=== PATIENT | male | born 1965 | race Hispanic/Latino ===

== ENCOUNTER 2019-01-04 10:56 | Inpatient (IN) | payer MEDICARE ==
[~2019-01-04] VITALS: Ht 175.3 cm; Wt 83.0 kg
[~2019-01-04 10:56] MED LIST: ALPRAZOLAM2 M1 PO; DIVALPROEX SOD250 M1 PO; IBUPROFEN PO; LISINOPRIL5 MG PO; NEXIUM20 MG PO; PRAVASTATIN SOD20 MG PO; ULTRAM50 MG PO; Z.0.ABILIFY5 MG; Z.0.AMLODIPINE BESY1 PO; Z.0.NEXIUM40 MG; Z.0.PRAVASTATIN SOD2; [UNRECOGNIZED DRUG - OTHER]
--- OUTSIDE RECORDS SUMMARY | 2019-01-04 11:00 | XMS REPORT | Summary of Care ---
Author Author [facility] Address Unknown Phone Unavailable Encounter HQ Encntr_aliwinnie(FIN) [id number] Date(s): 10/30/17 - 11/28/17 [facility] Encounter Diagnosis Low back pain (Final) - 12/04/17 Abnormal posture (Final) - Muscle weakness (generalized) (Final) - Unspecified abnormalities of gait and mobility (Final) - Other specified dorsopathies, lumbar region (Final) - Discharge Disposition: Home or Self Care Attending Physician: Asher Parker MD Vital Signs No data available for this section Problem List No data available for this section Allergies, Adverse Reactions, Alerts No data available for this section Medications No data available for this section Results No data available for this section Immunizations No data available for this section Procedures No data available for this section Social History No data available for this section Assessment and Plan No data available for this section
--- OUTSIDE RECORDS SUMMARY | 2019-01-04 11:00 | XMS REPORT | Continuity of Care Document ---
Author Author [facility] Interface Address Unknown Phone Unavailable Problems Problem Status Onset Date Classification Date Reported Comments Source Low back pain 12/05/2017 03/06/2018 [facility] [place] LOW BACK PAIN Active 10/27/2017 [facility] [place] LUMBAR Active 11/25/2016 [facility] [place] Abnormal posture 03/06/2018 [facility] [place] Muscle weakness 03/06/2018 [facility] [place] Unspecified abnormalities of gait and mobility 03/06/2018 [facility] [place] Other specified dorsopathies, lumbar region 03/06/2018 [facility] [place] Medications Medication Details Route Status Patient Instructions Ordering Provider Order Date Source Allergies, Adverse Reactions, Alerts Substance Category Reaction Severity Reaction type Status Date Reported Comments Source Immunizations Immunization Date Given Site Status Last Updated Comments Source Results Order Name Results Value Reference Range Date Interpretation Comments Source Spine lumbar series DX Spine lumbar series DX EXAM: Spine lumbar series DX HISTORY: - M54.17 Radiculopathy, lumbosacral region COMPARISON: None AP, lateral and oblique views of the lumbar spine. FINDINGS: AP alignment is normal. No pars defect or vertebral body height loss is seen. There is advanced L5-S1 disc space narrowing with mild facet arthropathy. IMPRESSION: Advanced L5-S1 disc space narrowing. 12/04/2018 - - Read by: Kellie Lopez MD Dictated Date/time: 12/04/18 12:32 Electronically Signed by: Kellie Lopez MD 12/04/18 12:33 FINAL REPORT [facility] Chest 2 views DX Chest 2 views DX EXAM: Chest 2 views DX HISTORY: - F17.200 Nicotine dependence, unspecified, uncomplicated; R63.4 Abnormal weight loss COMPARISON: None The heart size is normal. The lungs are clear. There is no pleural effusion or pneumothorax. Mild discogenic degenerative changes are noted. IMPRESSION: No acute abnormality. 12/04/2018 - - Read by: Kellie Lopez MD Dictated Date/time: 12/04/18 13:02 Electronically Signed by: Kellie Lopez MD 12/04/18 13:03 FINAL REPORT [facility] [place] Vital Signs Vital Sign Value Date Comments Source Encounters Location Location Details Encounter Type Encounter Number Reason For Visit Attending Provider ADM Date DC Date Status Source [facility] [place] [facility] Patients [id number] Asher Parker 12/05/2016 01/04/2017 [facility] [place] [facility] [place] [facility] Patients [id number] Asher Parker 10/30/2017 11/29/2017 [facility] [place] [facility] [place] Outpt Diag Services [id number] Justin Saab 12/04/2018 12/05/2018 [facility] [place] Procedures Procedure Code Date Perfomer Comments Source
--- OUTSIDE RECORDS SUMMARY | 2019-01-04 11:00 | XMS REPORT | Summary of Care ---
Author Author [facility] Address Unknown Phone Unavailable Encounter HQ Encntr_alias([facility] [place] [facility]) [id number] Date(s): 12/05/16 - 01/03/17 [facility] Discharge Disposition: Home or Self Care Attending [...]
--- OUTSIDE RECORDS SUMMARY | 2019-01-04 11:00 | XMS REPORT | Summary of Care ---
Author Author [facility] [place] Organization [facility] [place] Address Unknown Phone Unavailable Encounter HQ Encntr_alias(FIN) [id number] Date(s): 12/04/18 - 12/04/18 [facility] [place] [address] [place] [phone] Discharge Disposition: Home or Self Care Attending Physician: Justin Saab DO Referring Physician: Justin Saab DO Vital Signs No data available for this [...]
[2019-01-04 12:02] LABS: BASOPHILS % 0.2 % (0.0-1.0); HEMATOCRIT 49.1 % (38.2-49.6); HEMOGLOBIN 16.8 g/dL (14.0-18.0); LYMPHOCYTES # (AUTO) 0.7 (1.0-3.2); LYMPHOCYTES % 5.3 % (18.0-39.1); MEAN CORPUSCULAR HEMOGLOBIN 32.9 pg (28-32); MEAN CORPUSCULAR HGB CONC 34.2 g/dL (31-35); MEAN CORPUSCULAR VOLUME 96.3 fL (81-99); MONOCYTES # (AUTO) 0.6 (0.2-0.8); MONOCYTES % 4.7 % (4.4-11.3); NEUTROPHILS # (AUTO) 11.4 (2.1-6.9); NEUTROPHILS % 89.3 % (38.7-80.0); PLATELET COUNT 268 x10e3/uL (140-360); RED CELL DISTRIBUTION WIDTH 12.5 % (11.7-14.4)
[2019-01-04] MEDS ORDERED: ONDANSETRON HCL INJ 2MG/ML 2ML 2 MG/ML VIAL IV STA (12:04)
[2019-01-04] MEDS ORDERED: SODIUM CHLORIDE 0.9% 1000ML 1,000 ML IV STA (12:04)
[2019-01-04] MEDS ORDERED: PANTOPRAZOLE 40 MG 10ML VIAL IV STA (12:04)
[2019-01-04] MEDS ORDERED: SODIUM CHLORIDE 0.9% 1000ML 1,000 ML ONE (12:05)
[2019-01-04 12:12] LABS: ALANINE AMINOTRANSFERASE 93 IU/L (0-55); ALBUMIN 3.9 g/dL (3.5-5.0); ALKALINE PHOSPHATASE 108 IU/L (40-150); ANION GAP 15.8 mmol/L (8-16); BLOOD UREA NITROGEN 10 mg/dL (7-26); BUN/CREATININE RATIO 12 (6-25); CALCIUM 10.4 mg/dL (8.4-10.2); CARBON DIOXIDE 26 mmol/L (22-29); CHLORIDE 102 mmol/L (98-107); CREATININE, SERUM 0.84 mg/dL (0.72-1.25); EST GLOMERULAR FILTRATION RATE > 60 ML/MIN (60-); GLUCOSE 156 mg/dL (74-118); POTASSIUM 3.8 mmol/L (3.5-5.1); SODIUM 140 mmol/L (136-145)
[2019-01-04 12:13] LABS: CLARITY,URINE CLEAR (CLEAR); COLOR,URINE YELLOW (YELLOW)
[2019-01-04 12:14] LABS: BILIRUBIN,URINE NEGATIVE (NEGATIVE); KETONES,URINE NEGATIVE (NEGATIVE); LEUKOCYTE ESTERASE ,URINE NEGATIVE (NEGATIVE); NITRITE,URINE NEGATIVE (NEGATIVE); PROTEIN,URINE DIPSTICK 1+ (NEGATIVE); URINE UROBILINOGEN 0.2 mg/dL (0.2 - 1)
[2019-01-04] MEDS ORDERED: MORPHINE SULFATE INJ 4 MG/ML INJ 1ML IV ONE (12:15)
[2019-01-04 12:27] LABS: OCCULT BLOOD STOOL POSITIVE (NEGATIVE)
[2019-01-04 12:27] LABS: BACTERIA,URINE FEW /HPF; EPITHELIAL CELLS,URINE FEW /LPF; RBC,URINE 0-5 /HPF (0-5)
[2019-01-04 12:48] LABS: INR 0.82; PROTHROMBIN TIME 11.8 seconds (11.9-14.5)
[2019-01-04 12:49] LABS: PARTIAL THROMBOPLASTIN TIME 30.9 seconds (23.8-35.5)
[2019-01-04 12:51] LABS: C DIFFICILE TOXIN A&B AMP PROB NEGATIVE (NEGATIVE)
[2019-01-04 12:55] LABS: AMYLASE 49 U/L (25-125); CREATINE KINASE 25 IU/L (30-200); LIPASE 11 U/L (8-78)
--- NOTE | 2019-01-04 13:05 | NUR ---
RECEIVED REPORT FROM REY MURPHY. ASSUMED CARE AT THIS TIME.
--- NOTE | 2019-01-04 13:15 | Diagnostic Imaging Report ---
EXAMINATION: CT of the abdomen and pelvis with contrast. TECHNIQUE: Spiral CT images of the abdomen and pelvis were performed from the lung bases to the lesser trochanters after the intravenous administration of 100 cc Isovue-370. Coronal and sagittal reformatted images were obtained. COMPARISON: None. CLINICAL HISTORY:Right upper quadrant abdominal pain DISCUSSION: ABDOMEN/PELVIS: LOWER THORAX:Unremarkable. HEPATOBILIARY: Hepatic parenchyma is diffusely hypoattenuating, compatible with steatosis. No focal hepatic lesion. No intra-or extrahepatic biliary ductal dilation. The gallbladder is normal. SPLEEN: No splenomegaly. PANCREAS: No focal masses or ductal dilatation. ADRENALS: No adrenal nodules. KIDNEYS/URETERS: Punctate nonobstructing calculi within the interpolar and lower pole regions of the left kidney. Subcentimeter hypoattenuating lesion in the interpolar left kidney is too small to further characterize though may represent a small cyst. No hydronephrosis. No solid renal mass lesion. PELVIC ORGANS/BLADDER: The urinary bladder is incompletely distended but otherwise unremarkable. Coarse prostatic calcifications. PERITONEUM/RETROPERITONEUM: No free air or fluid. LYMPH NODES: No pelvic sidewall, retroperitoneal, or mesenteric lymphadenopathy. VESSELS: Abdominal aorta, major branch vessels, and iliac arterial systems are nonaneurysmal. Atherosclerotic calcification of the abdominal aorta. Single bilateral renal arteries. Portal vein, splenic vein, and central superior mesenteric vein are patent. GI TRACT: The large bowel is notable for multiple sigmoid diverticula with a short segment focus of wall thickening and adjacent inflammatory change seen on series 2 image 66. Normal appendix. No small bowel dilatation to suggest obstruction. Multiple surgical clips along the rectosigmoid junction. BONES AND SOFT TISSUE: No osseous destructive lesions. Degenerative disc changes and facet arthropathy of the lumbar spine. No focal soft tissue abnormalities. Postsurgical changes of the anterior abdominal wall. IMPRESSION: Findings suggest mild short segment sigmoid diverticulitis along the area of previous partial colectomy. No maci perforation or drainable fluid collection. Nonobstructing left renal calculi. Atherosclerotic vascular disease. Signed by: Dr. Pablo Farrell M.D. on 01/04/2019 1:12 PM
--- NOTE | 2019-01-04 13:17 | Diagnostic Imaging Report ---
EXAMINATION: CHEST SINGLE (PORTABLE) INDICATION: Vomiting. Abdominal pain. ^ABD PAIN ^[id number] ^1254 COMPARISON: None FINDINGS: TUBES and LINES: None. LUNGS: Lungs are well inflated. Lungs are clear. There is no evidence of pneumonia or pulmonary edema. PLEURA: No pleural effusion or pneumothorax. HEART AND MEDIASTINUM: The cardiomediastinal silhouette is unremarkable. BONES AND SOFT TISSUES: No acute osseous lesion. Soft tissues are unremarkable. UPPER ABDOMEN: No free air under the diaphragm. IMPRESSION: No acute thoracic abnormality. Signed by: Dr. Jacobo Wang M.D. on 01/04/2019 1:14 PM
[2019-01-04] MEDS ORDERED: PIPER-TAZ 3.375 GM 50 ML ONE (13:40)
[2019-01-04] MEDS: PIPER-TAZ 3.375 GM 50 ML IV SCH ×3 (13:45→23:42)
--- NOTE | 2019-01-04 13:55 | NUR ---
report to yannick lipscomb
[2019-01-04 14:12] LABS: AMPHETAMINES SCREEN,URINE NEGATIVE (NEGATIVE); BENZODIAZEPINES SCREEN,URINE NEGATIVE (NEGATIVE); PHENCYCLIDINE SCREEN,URINE NEGATIVE (NEGATIVE)
[2019-01-04] MEDS ORDERED: SODIUM CHLORIDE 0.9% 50ML 50 ML ONE (14:22)
[2019-01-04] MEDS ORDERED: IOPAMIDOL 370 MG/ML 200 ML INFUS..BTL INJ ONE (14:22)
--- OUTSIDE RECORDS SUMMARY | 2019-01-04 14:26 | XMS REPORT ---
Author Author [facility] Address Unknown Phone Unavailable Care Team Providers Care Electrician Substation Supervisor Name Role Phone Derick PYLE Unavailable Unavailable Problems This patient has no known problems. Allergies, Adverse Reactions, Alerts This patient has no known allergies or adverse reactions. Medications This patient has no known medications. Encounters Start Date/Time End Date/Time Encounter Type Admission Type Attending Clinicians Care Facility Care Department Encounter ID 2018-03-11 00:00:00 2018-03-12 00:00:00 Outpatient [facility] [id number] Results Test Description Test Time Test Comments Text Results Atomic Results Result Comments CHEST SINGLE (PORTABLE) 2019-01-04 13:14:00 [place] [address] Patient Name: SHAUN NAQVI MR #: [id number] : 1965 Age/Sex: 53/M Req #: [id number] Adm Physician: Ordered by: DINORAH PYLE MD Report #: [id number] Location: ER Room/Bed: Procedure: [id number] DX/CHEST SINGLE (PORTABLE) Exam Date: 01/04/19 Exam Time: 1254 REPORT STATUS: Signed EXAMINATION: CHEST SINGLE (PORTABLE) IND ICATION: Vomiting. Abdominal pain. ABD PAIN 20190104 125 COMPARISON: None FINDINGS: TUBES and LINES: None. LUNGS: Lungs are well inflated. Lungs are clear. There is no evidence of pneumonia or pulmonary edema. PLEURA: No pleural effusion or pneumothorax. HEART AND MEDIASTINUM: The cardiomediastinal silhouette is unremarkable. BONES AND SOFT TISSUES: No acute osseous lesion. Soft tissues are unremarkable. UPPER ABDOMEN: No free air under the diaphragm. IMPRESSION: No acute thoracic abnormality. Signed by: Dr. Jacobo Wang M.D. on 01/04/2019 1:14 PM Dictated By: JACOBO WANG MD, MD 13 Transcribed By: CHIQUIS on 01/04/191313 COPY TO: DINORAH PYLE MD CT ABDOMEN/PELVIS W 2019-01-04 13:01:00 [place] [address] Patient Name: SHAUN NAQVI MR #: [id number] : 1965 Age/Sex: 53/M Req #: [id number] Adm Physician: Ordered by: DINORAH PYLE MD Report #: [id number] Location: ER Room/Bed: Procedure: [id number] CT/CT ABDOMEN/PELVIS W Exam Date: 01/04/19 Exam Time: 1237 REPORT STATUS: Signed EXAMINATION: CT of the abdomen and pelvis with contras t. TECHNIQUE: Spiral CT images of the abdomen and pelvis were performed from the lung bases to the lesser trochanters after the intravenous administration of 100 cc Isovue-370. Coronal and sagittal reformatted images were obtained. COMPARISON: None. CLINICAL HISTORY:Right upper quadrant abdominal pain DISCUSSION: ABDOMEN/PELVIS: LOWER THORAX:Unremarkable. HEPATOBILIARY: Hepatic parenchyma is diffusely hypoattenuating, compatible with steatosis. No focal hepatic lesion. No intra-or extrahepatic biliary ductal dilation. The gallbladder is normal. SPLEEN: No splenomegaly. PANCREAS: No focal masses or ductal dilatation. ADRENALS: No adrenal nodules. KIDNEYS/URETERS: Punctate nonobstructing calculi within the interpolar and lower pole regions of the left kidney. Subcentimeter hypoattenuating lesion in the interpolar left kidney is too small to further characterize though may represent a small cyst. No hydronephrosis. No solid renal mass lesion. PELVIC ORGANS/BLADDER: The urinary bladder is incompletely distended but otherwise unremarkable. Coarse prostatic calcifications. PERITONEUM/RETROPERITONEUM: No free air or fluid. LYMPH NODES: No pelvic sidewall, retroperitoneal, or mesenteric lymphadenopathy. VESSELS: Abdominal aorta, major branch vessels, and iliac arterial systems are nonaneurysmal. Atherosclerotic calcification of the abdominal aorta. Single bilateral renal arteries. Portal vein, splenic vein, and central superior mesenteric vein are patent. GI TRACT: The large bow el is notable for multiple sigmoid diverticula with a short segment focus of wall thickening and adjacent inflammatory change seen on series 2 image 66. Normal appendix. No small bowel dilatation to suggest obstruction. Multiple surgical clips along the rectosigmoid junction. BONES AND SOFT TISSUE: No osseous destructive lesions. Degenerative disc changes and facet arthropathy of the lumbar spine. No focal soft tissue abnormalities. Postsurgical changes of the anterior abdominal wall. IMPRESSION: Findings suggest mild short segment sigmoid diverticulitis along the area of previous partial colectomy. No maci perforation or drainable fluid collection. Nonobstructing left renal calculi. Atherosclerotic vascular disease. Signed by: Dr. My Palmer M.D. on 01/04/2019 1:12 PM Dictated By: MY PALMER MD 1312 Transcribed By: CHIQUIS on 01/04/19 1312 COPY TO: DINORAH PYLE MD
[2019-01-04] MEDS ORDERED: ONDANSETRON HCL INJ 2MG/ML 2ML 2 MG/ML VIAL IV PRN (14:30)
[2019-01-04] MEDS: SODIUM CHLORIDE 0.9% 1000ML 1,000 ML IV SCH ×2 (14:30→22:27)
[2019-01-04] MEDS ORDERED: MORPHINE SULFATE 2 MG/ML SYR 1ML IV PRN (14:30)
[2019-01-04] MEDS: MORPHINE SULFATE INJ 4 MG/ML INJ 1ML IV PRN ×3 (17:34→23:58)
--- NOTE | 2019-01-04 18:10 | NUR ---
Received patient via stretcher from ER. AAOX4 to time, person, place, situation. Respirations even and unlabored. NS 125ml/hr via Right AC 20G IV. Instructed patient to use call light for assistance. Voiced understanding.
--- NOTE | 2019-01-04 19:05 | NUR ---
Report given to oncoming nurse of patient's status. Admission to be completed by oncoming nurse
[2019-01-04] MEDS ORDERED: CELEXA10 MG PO (19:21)
[2019-01-04] MEDS ORDERED: WELLBUTRIN SR150 MG PO (19:21)
[2019-01-04] MEDS ORDERED: ABILIFY5 MG PO (19:21)
--- NOTE | 2019-01-04 19:23 | NUR ---
aware of lactic acid 20.6
[2019-01-04] MEDS ORDERED: TRAMADOL HCL 50 MG TAB PO PRN (19:30)
--- NOTE | 2019-01-04 19:30 | NUR ---
Patient visited in room during nursing rounds. Patient alert and oriented x3. No distress noted. Pt with intermittent abd pain. at bedside. Pt on IVF (NS @ 125ml/hr). Patient ambulatory prn. Call car within reach. Will monitor closely.
[2019-01-04] MEDS ORDERED: ONDANSETRON HCL 4 MG ORAL DISINTEGRATING TAB PO PRN (20:00)
[2019-01-04] MEDS: PRAVASTATIN 20 MG TAB PO SCH (20:35)
[2019-01-04] MEDS: ARIPIPRAZOLE 5 MG TABLET PO SCH (20:35)
[2019-01-04] MEDS: DIVALPROEX SODIUM 250 MG TAB...DR PO SCH (20:35)
[2019-01-04 20:48] VITALS: BP 139/80
[2019-01-04] MEDS ORDERED: DIVALPROEX SODIUM 750 MG PO SCH (21:00)
[2019-01-04] MEDS ORDERED: NON-FORMULARY MEDICATION (Aripiprazole (Abilify) 5 MG) PO SCH (21:00)
[2019-01-04] MEDS: IBUPROFEN 400 MG TAB PO SCH (21:00)
[2019-01-04] MEDS ORDERED: IBUPROFEN 800 MG PO SCH (21:00)
[2019-01-04 22:00] VITALS: BP 139/80
[2019-01-05] VITALS (7 sets, daily range): BP systolic 105–137; BP diastolic 58–74
[2019-01-05 05:46] LABS: BASOPHILS # (AUTO) 0.1 (0.0-0.1); BASOPHILS % 0.5 % (0.0-1.0); EOSINOPHILS # (AUTO) 0.2 (0.0-0.4); EOSINOPHILS % 1.6 % (0.0-6.0); HEMATOCRIT 38.5 % (38.2-49.6); LYMPHOCYTES # (AUTO) 2.3 (1.0-3.2); LYMPHOCYTES % 22.6 % (18.0-39.1); MEAN CORPUSCULAR HEMOGLOBIN 32.5 pg (28-32); MEAN CORPUSCULAR HGB CONC 33.8 g/dL (31-35); MEAN CORPUSCULAR VOLUME 96.3 fL (81-99); MONOCYTES # (AUTO) 1.2 (0.2-0.8); MONOCYTES % 11.6 % (4.4-11.3); NEUTROPHILS # (AUTO) 6.6 (2.1-6.9); NEUTROPHILS % 63.4 % (38.7-80.0); PLATELET COUNT 204 x10e3/uL (140-360); RED CELL DISTRIBUTION WIDTH 12.6 % (11.7-14.4)
[2019-01-05] MEDS: PIPER-TAZ 3.375 GM 50 ML IV SCH ×4 (05:56→23:02)
[2019-01-05 06:06] LABS: ALANINE AMINOTRANSFERASE 59 IU/L (0-55); ALBUMIN 2.7 g/dL (3.5-5.0); ALBUMIN/GLOBULIN RATIO 1.1 (0.8-2.0); ALKALINE PHOSPHATASE 65 IU/L (40-150); ANION GAP 9.1 mmol/L (8-16); BLOOD UREA NITROGEN 11 mg/dL (7-26); BUN/CREATININE RATIO 13 (6-25); CARBON DIOXIDE 27 mmol/L (22-29); CHLORIDE 106 mmol/L (98-107); CREATININE, SERUM 0.82 mg/dL (0.72-1.25); EST GLOMERULAR FILTRATION RATE > 60 ML/MIN (60-); GLUCOSE 99 mg/dL (74-118); POTASSIUM 4.1 mmol/L (3.5-5.1); SODIUM 138 mmol/L (136-145)
[2019-01-05 06:15] LABS: CALCIUM 8.8 mg/dL (8.4-10.2)
[2019-01-05] MEDS: MORPHINE SULFATE INJ 4 MG/ML INJ 1ML IV PRN ×3 (07:05→18:02)
[2019-01-05] MEDS: SODIUM CHLORIDE 0.9% 1000ML 1,000 ML IV SCH ×3 (07:05→22:16)
[2019-01-05] MEDS: PANTOPRAZOLE SOD 40 MG TABEC PO SCH (07:09)
--- NOTE | 2019-01-05 07:53 | NUR ---
H&P cc: abdominal pain HPI: 53yoM, PCP Dr.Milton Saab, GI , with hx diverticulitis and partial sigmoid resection in 1993, now with severe mid lower abdominal pain, found to have acute diverticulitis. Also found to be positive for cocaine and methamphetamine. PMH: substance abuse including cocaine, HTN, HLD, diverticulitis s/p patial sigmoid resection in 1993, HCV, current smoker, mood d/o PSHX: partial sigmoid resction in 1993 for diverticulitis, right inguinal hernia repair Allergies; see emr Fh/SH; ; no etoh; 1/3ppd cigs; cocaine and MJ use Meds; see MAR ROS: no f/c/s/N/V/EASTON/vision changes/back pain/skin rash v/s revd PE tired appearing anicteric ns1s2 mod bs soft ND; mid abdominal scan; tender in mid lower abdomen no e/t skin dry n. affect labs/meds; revd A/P: 53yoM Sigmoid Diverticulitis Dehydration Cocaine use Methamphetamine use Hypercalcemia related to dehydration Acute transaminitis HTN HLD mood d/o Curent smoker PLAN IVF; ABX; GI consultation; CLD Weight loss important Continue home meds Nicotine patch SHARRON; ppi Ernesto Ashraf MD, PhD.
[2019-01-05] MEDS: AMLODIPINE BESYLATE 10 MG TAB PO SCH (08:28)
[2019-01-05] MEDS: BUPROPION HCL 100 MG TAB PO SCH (08:28)
[2019-01-05] MEDS: ALPRAZOLAM 1 MG TAB PO SCH (08:28)
[2019-01-05] MEDS: NICOTINE 7 MG PATCH TOP SCH (08:28)
[2019-01-05] MEDS: LISINOPRIL 2.5 MG TAB PO SCH (08:28)
[2019-01-05] MEDS: CITALOPRAM HYDROBROMIDE 20 MG TAB PO SCH (08:29)
[2019-01-05] MEDS: IBUPROFEN 400 MG TAB PO SCH ×3 (08:29→20:22)
[2019-01-05] MEDS ORDERED: NON-FORMULARY MEDICATION (Lisinopril 5 MG) PO SCH (09:00)
[2019-01-05] MEDS ORDERED: BUPROPION HCL SR 150 MG TAB PO SCH (09:00)
[2019-01-05] MEDS ORDERED: NON-FORMULARY MEDICATION (Citalopram Hydrobromide (Celexa) 10 MG) PO SCH (09:00)
[2019-01-05] MEDS ORDERED: PANTOPRAZOLE 40 MG 10ML VIAL IV SCH (09:00)
[2019-01-05] MEDS ORDERED: NON-FORMULARY MEDICATION (Alprazolam 2 MG) PO SCH (09:00)
--- NOTE | 2019-01-05 09:00 | NUR ---
Patient refuses nicotine patch. Informed patient this is a non smoking facity. Patient states "I dont care. I will go smoke across the street if I have to" Notified of situation. states " I want to see him" Elisa Owen RN (manager [employer]) aware of situation.
--- NOTE | 2019-01-05 13:54 | NUR ---
Patient disconnected self from IV. Educated patient on infection control. Patient states "I don't care if I get an infection. I can always come back to the hospital"
--- NOTE | 2019-01-05 15:15 | NUR ---
Visit made by the Spiritual Care Department Pastoral Visitor, Guerline Jimenez. Pt sleeping soundly and no family present. Pastoral Visitor left a card describing availability of it service delivery manager and instructions on how to contact a it service delivery manager. SON HANSON Staff Development Manager Spiritual Care Department O: [phone] Pager: [phone] ([phone] number calling from)
--- NOTE | 2019-01-05 18:46 | NUR ---
Resting in bed. at bedside. No s/s of acute distress noted. Report to be given to oncoming nurse.
[2019-01-05] MEDS: DIVALPROEX SODIUM 250 MG TAB...DR PO SCH (20:22)
[2019-01-05] MEDS: PRAVASTATIN 20 MG TAB PO SCH (20:22)
[2019-01-05] MEDS: ARIPIPRAZOLE 5 MG TABLET PO SCH (20:22)
[2019-01-06] VITALS: BP 107/58
[2019-01-06 01:17] VITALS: BP 101/56
--- NOTE | 2019-01-06 01:44 | Consultation ---
DATE OF CONSULTATION: 01/05/2019 HISTORY OF PRESENT ILLNESS: This is a 53-year-old gentleman, who has a history of diverticulitis in the past and also a history of polyp, history of hepatitis C, presented to the hospital because of abdominal pain along with some nausea. The patient was found to have another episode of diverticulitis on admissions by CAT scan. He has been getting antibiotic. He is doing better at this point. PAST MEDICAL HISTORY: Other medical problems are significant for history of diverticulitis requiring surgery before, history of colon polyp, history of hepatitis C, history of hypertension, history of seizure disorder. MEDICATIONS: Currently, he is on antibiotic with Zosyn, Celexa, lisinopril, Xanax, Wellbutrin, Norvasc, Protonix, Depakote, and Abilify. SOCIAL HISTORY: No alcohol use. FAMILY HISTORY: Noncontributory. REVIEW OF SYSTEMS: Denies any chest pain or shortness of breath. Denies any dysphagia or odynophagia. Denies any dysuria, hematuria, or any kind of syncopal episode. PHYSICAL EXAMINATION: GENERAL: Awake, alert, appears to be stable, not in acute distress at this point. VITAL SIGNS: Afebrile currently with stable vital signs. HEENT: Head is normocephalic, atraumatic. Sclerae are anicteric. NECK: Supple. HEART: Regular. LUNGS: Clear. ABDOMEN: Soft. There is no distension at this point. It is nontender. EXTREMITIES: There is no clubbing. LABORATORY VALUES: As of today, ALT of 59, WBC of 10.3, on admission was 12.7, hemoglobin of 13. CAT scan showed diverticulitis. IMPRESSION: 1. Abdominal pain. 2. Diverticulitis. 3. Elevated liver function tests. The patient has history of hepatitis C. 4. Hypertension. RECOMMENDATIONS: Continue current care at this point and advance diet. He should be able to go home in the morning and follow up in the office. He needs to have colonoscopy in about 4-6 weeks. MD LASHAWN Espinal/AIRAM /[id number] cc: DO Ernesto Aldana MD
[2019-01-06] MEDS: SODIUM CHLORIDE 0.9% 1000ML 1,000 ML IV SCH (05:03)
[2019-01-06] MEDS: PIPER-TAZ 3.375 GM 50 ML IV SCH (05:03)
[2019-01-06 05:05] VITALS: BP 105/57
--- NOTE | 2019-01-06 06:36 | NUR ---
Discharge Summary A/P: 53yoM Sigmoid Diverticulitis Dehydration Cocaine use Methamphetamine use Hypercalcemia related to dehydration Acute transaminitis HTN HLD mood d/o Curent smoker PLAN IVF; ABX; GI consultation; CLD Weight loss important Continue home meds Nicotine patch SHARRON; ppi d/c home f/u pcp 1 week and [facility] 6 weeks for colonoscopy. stable d/c>35mins Ernesto Ashraf MD, PhD.
[2019-01-06] MEDS ORDERED: KEFLEX500 MG PO (07:40)
[2019-01-06] MEDS ORDERED: CLINDAMYCIN HC150 MG PO (07:41)
[2019-01-06 08:00] VITALS: BP 132/81
[2019-01-06] MEDS: CITALOPRAM HYDROBROMIDE 20 MG TAB PO SCH (08:01)
[2019-01-06] MEDS: PANTOPRAZOLE SOD 40 MG TABEC PO SCH (08:01)
[2019-01-06] MEDS: ALPRAZOLAM 1 MG TAB PO SCH (08:02)
[2019-01-06] MEDS: AMLODIPINE BESYLATE 10 MG TAB PO SCH (08:02)
[2019-01-06] MEDS: IBUPROFEN 400 MG TAB PO SCH (08:02)
[2019-01-06] MEDS: NICOTINE 7 MG PATCH TOP SCH (08:02)
[2019-01-06] MEDS: LISINOPRIL 2.5 MG TAB PO SCH (08:02)
[2019-01-06] MEDS: BUPROPION HCL 100 MG TAB PO SCH (08:02)
[2019-01-06 08:03] VITALS: BP 132/81
--- NOTE | 2019-01-06 08:20 | NUR ---
Patient finished eating breakfast. Tolerated well. Denies pain.
--- NOTE | 2019-01-06 09:09 | NUR ---
Right Hand IV discontinued. No signs of infiltration noted. 2x2 gauze and tape placed. Accompanied by PCT to personal car. Accompanied by . AAOx4 to time, person, place, situation. Respirations even and unlabored. Discharge instructions, rx, and all personal belongings taken with patient.
== END 2019-01-06 09:09 | disposition home or self-care (01) | DRG 392 ==
LOC: ER 10:56 → ERHOLD 14:16 → MED/SURG2 18:08
PROVIDERS: ADMIT Internal Medicine; ATTEND Internal Medicine
DX: K57.92 Diverticulitis of intestine, part unspecified, without perforation or abscess without bleeding (principal); I10 Essential (primary) hypertension
CPT/HCPCS: 36415; 71045; 74177; 80053; 80307; 80329; 81001; 82150; 82270; 82550; 82553; 83605; 83690; 83735; 84484; 85025; 85610; 85730; 87040; 87493; 93005; 99284; J2270; J2405; J2543; J7030; Q9967

== ENCOUNTER 2019-04-14 11:13 | Emergency (ER) | payer MEDICARE, OTHER ==
[~2019-04-14] VITALS: Ht 175.3 cm; Wt 83.0 kg
[~2019-04-14 11:13] MED LIST changes: +ABILIFY5 MG PO; +CELEXA10 MG PO; +CLINDAMYCIN HC150 MG PO; +KEFLEX500 MG PO; +WELLBUTRIN SR150 MG PO
--- OUTSIDE RECORDS SUMMARY | 2019-04-14 11:17 | XMS REPORT | Continuity of Care Document ---
Author Author [facility] Address Unknown Phone Unavailable Care Team Providers Care Coiler Operator Name Role Phone [facility] Unavailable Unavailable Problems Problem Status Onset Date Classification Date Reported Comments Source Low back pain 12/05/2017 03/06/2018 [facility] [place] LOW BACK PAIN Active 10/27/2017 [facility] [place] LUMBAR Active 11/25/2016 [facility] [place] Abnormal posture 03/06/2018 [facility] Muscle weakness 03/06/2018 [facility] [place] Unspecified abnormalities of gait and mobility 03/06/2018 [facility] [place] Other specified dorsopathies, lumbar region 03/06/2018 [facility] [place] Medications No Data Provided for This Section Allergies, Adverse Reactions, Alerts No Known Medication Allergies Immunizations No Data Provided for This Section Results No Data Provided for This Section Pathology Reports No Data Provided for This Section Diagnostic Reports Report Value Date Source Spine lumbar series DX EXAM: Spine lumbar series DX HISTORY: - M54.17 Radiculopathy, lumbosacral region COMPARISON: None AP, lateral and oblique views of the lumbar spine. FINDINGS: AP alignment is normal. No pars defect or vertebral body height loss is seen. There is advanced L5-S1 disc space narrowing with mild facet arthropathy. IMPRESSION: Advanced L5-S1 disc space narrowing. 12/04/2018 [facility] [place] Chest 2 views DX EXAM: Chest 2 views DX HISTORY: - F17.200 Nicotine dependence, unspecified, uncomplicated; R63.4 Abnormal weight loss COMPARISON: None The heart size is normal. The lungs are clear. There is no pleural effusion or pneumothorax. Mild discogenic degenerative changes are noted. IMPRESSION: No acute abnormality. 12/04/2018 [facility] [place] Consultation Notes No Data Provided for This Section Discharge Summaries No Data Provided for This Section History and Physicals No Data Provided for This Section Vital Signs No Data Provided for This Section Encounters Location Location Details Encounter Type Encounter Number Reason For Visit Attending Provider ADM Date DC Date Status Source [facility] [place] OP Therapy Patients [id number] [facility] Elena 12/05/2016 01/04/2017 [facility] [place] [facility] [place] [facility] Patients [id number] Asher Parker 10/30/2017 11/29/2017 [facility] [place] [facility] - [place] Outpt Diag Services [id number] Justin Kaiser 12/04/2018 12/05/2018 [facility] [place] Procedures No Data Provided for This Section Assessment and Plan No Data Provided for This Section Plan of Care No Data Provided for This Section Social History Social History Date Source No data available for this section 12/05/2018 [facility] [place] No data available for this section 11/29/2017 [facility] [place] Family History No Data Provided for This Section Advance Directives No Data Provided for This Section Functional Status No Data Provided for This Section
[2019-04-14] MEDS ORDERED: SODIUM CHLORIDE 0.9% 1000ML 1,000 ML IV STA (11:20)
[2019-04-14] MEDS ORDERED: KETOROLAC TROMETHAMINE 30 MG/ML VIAL IV NR ×2 (11:30→14:15)
[2019-04-14] MEDS ORDERED: ONDANSETRON HCL INJ 2MG/ML 2ML 2 MG/ML VIAL IV NR (11:30)
[2019-04-14] MEDS ORDERED: DICYCLOMINE HCL 20 MG/2 ML VIAL IM ONE (11:30)
[2019-04-14] MEDS ORDERED: DIATRIZOATE MEGL/DIATRIZOA SOD 30 ML BTL PO ONE (11:45)
[2019-04-14 11:57] LABS: BILIRUBIN,URINE NEGATIVE (NEGATIVE); CLARITY,URINE CLEAR (CLEAR); COLOR,URINE YELLOW (YELLOW); LEUKOCYTE ESTERASE ,URINE NEGATIVE (NEGATIVE); NITRITE,URINE NEGATIVE (NEGATIVE); PROTEIN,URINE DIPSTICK NEGATIVE (NEGATIVE); URINE UROBILINOGEN 0.2 mg/dL (0.2 - 1)
[2019-04-14] MEDS ORDERED: MORPHINE SULFATE 2 MG/ML SYR 1ML IV NR (12:00)
[2019-04-14 12:01] LABS: PHENCYCLIDINE SCREEN,URINE NEGATIVE (NEGATIVE)
[2019-04-14 12:02] LABS: BENZODIAZEPINES SCREEN,URINE POSITIVE (NEGATIVE)
[2019-04-14 12:05] LABS: AMPHETAMINES SCREEN,URINE NEGATIVE (NEGATIVE)
[2019-04-14 12:06] LABS: KETONES,URINE 3+ (NEGATIVE)
[2019-04-14 12:19] LABS: BACTERIA,URINE MODERATE /HPF; EPITHELIAL CELLS,URINE MODERATE /LPF; MUCUS,URINE MODERATE (RARE)
--- NOTE | 2019-04-14 12:24 | NUR ---
rec'd pt in rm 9 with c/o abdominal pain that started last nite at about 2200. placed in a gown and on the monitor. iv access obtained and labs sent off. family at side. meds given per 's ordrs and pt has tolerated.
[2019-04-14 12:26] LABS: BASOPHILS % 0.2 % (0.0-1.0); HEMATOCRIT 46.1 % (38.2-49.6); HEMOGLOBIN 16.6 g/dL (14.0-18.0); LYMPHOCYTES % 9.6 % (18.0-39.1); MEAN CORPUSCULAR HEMOGLOBIN 33.8 pg (28-32); MEAN CORPUSCULAR VOLUME 93.9 fL (81-99); MONOCYTES # (AUTO) 0.5 (0.2-0.8); MONOCYTES % 5.2 % (4.4-11.3); NEUTROPHILS # (AUTO) 8.8 (2.1-6.9); NEUTROPHILS % 84.6 % (38.7-80.0); PLATELET COUNT 256 x10e3/uL (140-360); RED BLOOD COUNT 4.91 x10e6/uL (4.3-5.7); RED CELL DISTRIBUTION WIDTH 11.6 % (11.7-14.4)
[2019-04-14 12:39] LABS: INR 0.89; PROTHROMBIN TIME 12.5 seconds (11.9-14.5)
[2019-04-14 12:40] LABS: PARTIAL THROMBOPLASTIN TIME 34.1 seconds (23.8-35.5)
[2019-04-14 12:47] LABS: ALANINE AMINOTRANSFERASE 14 IU/L (0-55); ALBUMIN 3.9 g/dL (3.5-5.0); ALBUMIN/GLOBULIN RATIO 1.1 (0.8-2.0); ALKALINE PHOSPHATASE 79 IU/L (40-150); AMYLASE 56 U/L (25-125); ANION GAP 18.5 mmol/L (8-16); BLOOD UREA NITROGEN 12 mg/dL (7-26); BUN/CREATININE RATIO 15 (6-25); CALCIUM 10.7 mg/dL (8.4-10.2); CARBON DIOXIDE 21 mmol/L (22-29); CHLORIDE 104 mmol/L (98-107); CREATINE KINASE 34 IU/L (30-200); CREATININE, SERUM 0.79 mg/dL (0.72-1.25); EST GLOMERULAR FILTRATION RATE > 60 ML/MIN (60-); GLUCOSE 137 mg/dL (74-118); LIPASE 19 U/L (8-78); POTASSIUM 4.5 mmol/L (3.5-5.1); SODIUM 139 mmol/L (136-145)
--- NOTE | 2019-04-14 14:07 | Diagnostic Imaging Report ---
EXAM: CT Abdomen and Pelvis WITH intravenous contrast INDICATION: Abdominal pain COMPARISON: None. TECHNIQUE: Abdomen and pelvis were scanned utilizing a multidetector helical scanner from the lung base to the pubic symphysis after administration of IV contrast. Coronal and sagittal reformations were obtained. Routine protocol was performed. Scan was performed when during portal venous phase. IV CONTRAST: 100mL of Isovue 370 ORAL CONTRAST: Gastrografin COMPLICATIONS: None RADIATION DOSE: Total DLP: 472.5 mGy*cm Dose modulation, iterative reconstruction, and/or weight based adjustment of the mA/kV was utilized to reduce the radiation dose to as low as reasonably achievable. FINDINGS: LOWER THORAX: No focal consolidation at the lung bases. The heart is not enlarged. HEPATOBILIARY: Diffuse hepatic parenchymal hypoattenuation consistent with hepatic steatosis. No focal liver lesions. No biliary ductal dilatation. The gallbladder appears unremarkable. SPLEEN: No splenomegaly. PANCREAS: No focal masses or ductal dilatation. ADRENALS: No adrenal nodules. KIDNEYS/URETERS: No hydronephrosis. Bilateral nonobstructing renal calculi measure up to 4 mm on the left and 2 mm on the right. There is a 3 mm calculus in the proximal left ureter. PELVIC ORGANS/BLADDER: Unremarkable. PERITONEUM / RETROPERITONEUM: Coarse calcifications within the prostate which is enlarged to 5.0 cm. LYMPH NODES: No lymphadenopathy. VESSELS: Scattered atherosclerotic calcifications of the nonaneurysmal abdominal aorta and major branches. GI TRACT: Mildly distended loops of small bowel in the mid abdomen measure up to 3 cm. There is successful passage of contrast distal to these loops with no obvious transition point of potential obstruction. There is descending and sigmoid colonic diverticulosis with no CT evidence of diverticulitis. Diverticuli also involve the transverse and distal ascending colon. Normal appendix. BONES AND SOFT TISSUES: No acute osseous injury. Mild degenerative changes. No suspicious lytic or blastic lesions. IMPRESSION: 3 mm calculus in the proximal left ureter. Bilateral nonobstructive renal calculi. Mildly distended loops of small bowel in the midabdomen measuring up to 3 cm. There is successful passage of contrast distal to these loops with no obvious transition point of potential obstruction. Diverticulosis involving the sigmoid and descending colon and to a lesser extent transverse and distal ascending colon without CT evidence of diverticulitis. Hepatic steatosis. Signed by: Magdi De Leon MD on 04/14/2019 2:03 PM
--- NOTE | 2019-04-14 14:25 | NUR ---
DR. POLLARD/MIESHA GILBERT,PROCESSING TECHNICIAN IN TO SPEAK WITH PATIENT
--- NOTE | 2019-04-14 14:34 | NUR ---
DC REVIEWED WITH PT AND IV DC'D INTACT
[2019-04-14] MEDS ORDERED: SODIUM CHLORIDE 0.9% 50ML 50 ML ONE (14:48)
[2019-04-14] MEDS ORDERED: IOPAMIDOL 370 MG/ML 200 ML INFUS..BTL INJ ONE (14:48)
[2019-06-05] MEDS ORDERED: KEFLEX500 MG PO (07:43)
== END 2019-04-14 14:47 | disposition home or self-care (01) ==
LOC: ER 11:13
DX: R10.12 Left upper quadrant pain (principal); R10.32 Left lower quadrant pain; R11.2 Nausea with vomiting, unspecified; N20.1 Calculus of ureter
CPT/HCPCS: 36415; 74177; 80053; 80307; 81001; 82150; 82550; 82553; 83690; 84484; 85025; 85610; 85730; 87086; 93005; 99284; J0500; J1885; J2270; J2405; J7030; Q9967

== ENCOUNTER 2019-06-03 09:54 | Observation (INO) | payer MEDICARE ==
[~2019-06-03] VITALS: Ht 175.3 cm; Wt 88.2 kg
[2019-06-03] MEDS ORDERED: PANTOPRAZOLE 40 MG 10ML VIAL IV STA (09:58)
[2019-06-03] MEDS ORDERED: SODIUM CHLORIDE 0.9% 1000ML 1,000 ML IV STA (09:58)
[2019-06-03] MEDS ORDERED: MORPHINE SULFATE INJ 4 MG/ML INJ 1ML IV STA (09:58)
[2019-06-03] MEDS ORDERED: ONDANSETRON HCL INJ 2MG/ML 2ML 2 MG/ML VIAL IV STA (09:58)
[2019-06-03] MEDS ORDERED: CEFTRIAXONE SOD 1 GM/NS 50 ML 50 ML IV STA (09:58)
--- OUTSIDE RECORDS SUMMARY | 2019-06-03 09:59 | XMS REPORT | Continuity of Care Document ---
Author Author [facility]. Organization [facility]. 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 Unavailable Unavailable Problems Problem Status Onset Date Classification Date Reported Comments Source Low back pain 12/05/2017 03/06/2018 [facility] LOW BACK PAIN Active 10/27/2017 [facility] LUMBAR Active 11/25/2016 [facility] Abnormal posture 03/06/2018 [facility] Muscle weakness 03/06/2018 [facility] Unspecified abnormalities of gait and mobility 03/06/2018 [facility] Other specified dorsopathies, lumbar region 03/06/2018 [facility] Medications No Data Provided for This Section [...] Advanced L5-S1 disc space narrowing. 12/04/2018 [facility] Chest 2 views DX EXAM: Chest 2 views DX HISTORY: - F17.200 Nicotine dependence, unspecified, uncomplicated; R63.4 Abnormal weight loss COMPARISON: None The heart size is normal. The lungs are clear. There is no pleural effusion or pneumothorax. Mild discogenic degenerative changes are noted. IMPRESSION: No acute abnormality. 12/04/2018 [facility] Consultation Notes No Data Provided for This Section Discharge Summaries No Data Provided for This Section History and Physicals No Data Provided for This Section Vital Signs No Data Provided for This Section Encounters Location Location Details Encounter Type Encounter Number Reason For Visit Attending Provider ADM Date DC Date Status Source [facility] [id number] [facility] [place] 12/05/2016 01/04/2017 [facility] [id number] Asher Parker 10/30/2017 11/29/2017 [facility] [id number] Justin Kaiser 12/04/2018 12/05/2018 [facility] Procedures No Data Provided for This Section Assessment and Plan No Data Provided for This Section Plan of Care No Data Provided for This Section Social History Social History Date Source No data available for this section 12/05/2018 [facility] No data available for this section 11/29/2017 [facility] Family History No Data Provided for This Section Advance Directives No Data Provided for This Section Functional Status No Data Provided for This Section
[2019-06-03] MEDS ORDERED: DIATRIZOATE MEGL/DIATRIZOA SOD 30 ML BTL PO ONE (10:08)
[2019-06-03 10:19] LABS: BASOPHILS % 0.3 % (0.0-1.0); EOSINOPHILS # (AUTO) 0.1 (0.0-0.4); EOSINOPHILS % 1.1 % (0.0-6.0); HEMATOCRIT 43.2 % (38.2-49.6); HEMOGLOBIN 14.9 g/dL (14.0-18.0); LYMPHOCYTES # (AUTO) 2.3 (1.0-3.2); LYMPHOCYTES % 26.4 % (18.0-39.1); MEAN CORPUSCULAR HGB CONC 34.5 g/dL (31-35); MEAN CORPUSCULAR VOLUME 95.6 fL (81-99); MONOCYTES # (AUTO) 0.8 (0.2-0.8); MONOCYTES % 8.6 % (4.4-11.3); NEUTROPHILS # (AUTO) 5.5 (2.1-6.9); NEUTROPHILS % 63.3 % (38.7-80.0); PLATELET COUNT 210 x10e3/uL (140-360); RED BLOOD COUNT 4.52 x10e6/uL (4.3-5.7); RED CELL DISTRIBUTION WIDTH 11.9 % (11.7-14.4)
[2019-06-03 10:37] LABS: CLARITY,URINE CLEAR (CLEAR); COLOR,URINE YELLOW (YELLOW)
[2019-06-03 10:38] LABS: LEUKOCYTE ESTERASE ,URINE NEGATIVE (NEGATIVE); NITRITE,URINE NEGATIVE (NEGATIVE); PROTEIN,URINE DIPSTICK NEGATIVE (NEGATIVE)
[2019-06-03 10:39] LABS: BACTERIA,URINE RARE /HPF; BILIRUBIN,URINE NEGATIVE (NEGATIVE); EPITHELIAL CELLS,URINE FEW /LPF; KETONES,URINE NEGATIVE (NEGATIVE); RBC,URINE 0-5 /HPF (0-5); URINE UROBILINOGEN 0.2 mg/dL (0.2 - 1); WBC,URINE (MAN) 0-5 /HPF (0-5)
[2019-06-03 10:54] LABS: ALANINE AMINOTRANSFERASE 15 IU/L (0-55); ALBUMIN 3.7 g/dL (3.5-5.0); ALKALINE PHOSPHATASE 81 IU/L (40-150); AMYLASE 128 U/L (25-125); ANION GAP 14.7 mmol/L (8-16); BLOOD UREA NITROGEN 9 mg/dL (7-26); BUN/CREATININE RATIO 10 (6-25); CALCIUM 10.5 mg/dL (8.4-10.2); CARBON DIOXIDE 26 mmol/L (22-29); CHLORIDE 104 mmol/L (98-107); CREATININE, SERUM 0.88 mg/dL (0.72-1.25); EST GLOMERULAR FILTRATION RATE > 60 ML/MIN (60-); GLUCOSE 109 mg/dL (74-118); LIPASE 23 U/L (8-78); POTASSIUM 3.7 mmol/L (3.5-5.1); SODIUM 141 mmol/L (136-145)
--- NOTE | 2019-06-03 10:59 | NUR ---
RECEIVED REPORT FROM LIBRA RN; PT RESTING IN BED, BREATHING EVEN/UNLABORED, NON-DIAPHORETIC, NAD NOTED; PT REQUESTED BLANKET FOR COMFORT, PT SWADDLED AND TOLERATING WELL AT THIS TIME, DENIES ANY OTHER C/O AT THIS TIME, STATES PAIN IS BETTER BUT NOT GONE, "I DON'T KNOW WHAT NUMBER YET", BED LOW/LOCKED, SIDE RAILS UP, CALL LIGHT IN EASY REACH, WILL CONTINUE TO MONITOR.
--- NOTE | 2019-06-03 13:15 | Diagnostic Imaging Report ---
CT of the abdomen and pelvis, with contrast, 06/03/2019. History: Abdominal pain. Comparison: 04/14/2019. Technique: Multidetector CT scanning of the abdomen and pelvis was performed from the level of the lung bases to the inferior pubic rami after intravenous administration of contrast. Coronal and sagittal multiplanar reformations were obtained. RADIATION DOSE: Total DLP: 573 mGy*cm Dose modulation, iterative reconstruction, and/or weight based adjustment of the mA/kV was utilized to reduce the radiation dose to as low as reasonably achievable. Discussion: LUNG BASES: No visualized abnormalities. ABDOMEN: Multiple small stones are present in both kidneys ranging from 1 to 3 mm, without evidence of hydronephrosis. Subcentimeter cortical hypodensities are present in the left kidney which are too small to characterize. The 3 mm stone previously seen in the proximal left ureter is no longer present on today's exam. The liver, gallbladder, biliary tree, spleen, pancreas, and adrenal glands are normal. The hepatic vein, portal vein, and splenic vein are patent. The abdominal aorta is within normal limits for size. Evaluation of bowel is limited without oral contrast. There is no bowel dilatation. The appendix is visualized and is normal. Multiple diverticuli are present within the colon without evidence of adjacent inflammation. There is no evidence of adenopathy or free fluid. PELVIS: The bladder, prostate, and seminal vesicles are normal in appearance. Surgical clips are noted in the pelvis. Bilateral fat-containing inguinal hernias are present. There is no evidence of free fluid or adenopathy. BONES AND SOFT TISSUES: Degenerative changes are present throughout the lumbar spine without evidence of lytic or sclerotic lesion. IMPRESSION: 1. Multiple nonobstructing bilateral renal calculi. 2. Colonic diverticulosis without evidence of diverticulitis. 3. Bilateral fat-containing inguinal hernias. Signed by: Jarad Paz on 06/03/2019 1:12 PM
[2019-06-03] MEDS ORDERED: DICYCLOMINE HCL 20 MG/2 ML VIAL IM ONE ×2 (13:45)
[2019-06-03] MEDS: ONDANSETRON HCL INJ 2MG/ML 2ML 2 MG/ML VIAL IV PRN (13:48)
--- OUTSIDE RECORDS SUMMARY | 2019-06-03 13:49 | XMS REPORT | Continuity of Care Document ---
Author Author [facility] Organization [facility] Address Unknown Phone Unavailable Care Team Providers Care [facility] Name Role Phone [facility] Unavailable Unavailable Problems Problem Status Onset Date Classification Date Reported Comments Source Low back pain 12/05/2017 03/06/2018 [facility] [place] LOW BACK PAIN Active 10/27/2017 [facility] [place] LUMBAR Active 11/25/2016 [facility] [place] Abnormal posture 03/06/2018 [facility] [place] Muscle weakness 03/06/2018 [facility] [place] Unspecified abnormalities of gait and mobility 03/06/2018 [facility] [place] Other specified dorsopathies, lumbar region 03/06/2018 [facility] [place] Medications No Data Provided for This Section [...] Advanced L5-S1 disc space narrowing. 12/04/2018 [facility] [place] Chest 2 views DX EXAM: Chest 2 views DX HISTORY: - F17.200 Nicotine dependence, unspecified, uncomplicated; R63.4 Abnormal weight loss COMPARISON: None The heart size is normal. The lungs are clear. There is no pleural effusion or pneumothorax. Mild discogenic degenerative changes are noted. IMPRESSION: No acute abnormality. 12/04/2018 [facility] [place] Consultation Notes No Data Provided for This Section Discharge Summaries No Data Provided for This Section History and Physicals No Data Provided for This Section Vital Signs No Data Provided for This Section Encounters Location Location Details Encounter Type Encounter Number Reason For Visit Attending Provider ADM Date DC Date Status Source [facility] [place] [facility] Therapy Patients [id number] [facility] [place] 12/05/2016 01/04/2017 [facility] [place] [facility] [place] [facility] Patients [id number] Asher Parker 10/30/2017 11/29/2017 [facility] [place] [facility] [place] [facility] [id number] Justin Kaiser 12/04/2018 12/05/2018 [facility] [place] Procedures No Data Provided for This Section Assessment and Plan No Data Provided for This Section Plan of Care No Data Provided for This Section Social History Social History Date Source No data available for this section 12/05/2018 [facility] [place] No data available for this section 11/29/2017 [facility] [place] Family History No Data Provided for This Section Advance Directives No Data Provided for This Section Functional Status No Data Provided for This Section
[2019-06-03] MEDS: SODIUM CHLORIDE 0.9% 1000ML 1,000 ML IV SCH ×2 (13:50→21:37)
[2019-06-03] MEDS ORDERED: METRONIDAZOLE 500MG/NS 100ML 100 ML IV SCH (14:00)
[2019-06-03] MEDS ORDERED: SODIUM CHLORIDE 0.9% 50ML 50 ML ONE (14:24)
[2019-06-03] MEDS ORDERED: IOPAMIDOL 370 MG/ML 200 ML INFUS..BTL INJ ONE (14:25)
[2019-06-03] MEDS ORDERED: AMOXICILLIN/CLAVULANATE K 875 MG TAB PO SCH (14:30)
--- NOTE | 2019-06-03 14:56 | NUR ---
PT LYING IN BED ON RT SIDE, EYES CLOSED, BREATHING EVEN/UNLABORED, ON NIBP AND SPO2 MONITOR; BED LOW/LOCKED, SIDE RAILS UP, CALL LIGHT IN EASY REACH, WILL CONTINUE TO MONITOR.
--- NOTE | 2019-06-03 17:42 | NUR ---
Patient admitted to unit from ER. patient arrived via stretcher. patient is AAOx3. patient lung soriano clear to auscultation. Bowel sounds present x4 but hypoactive. Patient c/o severe abdominal pain. Some nausea and vomiting. Patient tolerating clear liquids at this time.
[2019-06-03 18:14] VITALS: BP 167/88
[2019-06-03 18:15] VITALS: BP 167/88
[2019-06-03] MEDS ORDERED: TRAMADOL HCL 50 MG TAB PO PRN (18:15)
[2019-06-03] MEDS ORDERED: DICYCLOMINE HCL 10 MG CAP PO PRN (18:15)
[2019-06-03 18:27] VITALS: BP 167/88
--- NOTE | 2019-06-03 19:50 | NUR ---
Received report from previous nurse. Patient in bed. Call light within reach. Patient in no pain or distress.
[2019-06-03 20:00] VITALS: BP 149/81
[2019-06-03] MEDS: AMOXICILLIN/CLAVULANATE K 875 MG TAB PO SCH (21:00)
[2019-06-03] MEDS ORDERED: NON-FORMULARY MEDICATION (Aripiprazole (Abilify) 5 MG) PO SCH (21:00)
[2019-06-03] MEDS ORDERED: DIVALPROEX SODIUM 750 MG PO SCH (21:00)
[2019-06-03] MEDS ORDERED: AMOXICILLIN/CLAVULANATE K 500 MG TAB PO SCH (21:00)
[2019-06-03] MEDS ORDERED: CIPROFLOXACIN 400 MG/D5W 200ML 200 ML IV SCH (21:00)
[2019-06-03] MEDS: DIVALPROEX SODIUM 250 MG TAB...DR PO SCH (21:00)
[2019-06-03] MEDS: PRAVASTATIN 20 MG TAB PO SCH (21:00)
[2019-06-03] MEDS: ARIPIPRAZOLE 5 MG TABLET PO SCH (21:00)
[2019-06-04] VITALS: BP 156/88
[2019-06-04 04:00] VITALS: BP 138/84
[2019-06-04] MEDS: SODIUM CHLORIDE 0.9% 1000ML 1,000 ML IV SCH ×3 (05:37→15:44)
[2019-06-04] MEDS ORDERED: PANTOPRAZOLE 40 MG 10ML VIAL IV ONE (05:39)
[2019-06-04 05:58] LABS: BASOPHILS % 0.2 % (0.0-1.0); HEMATOCRIT 42.4 % (38.2-49.6); HEMOGLOBIN 14.8 g/dL (14.0-18.0); LYMPHOCYTES # (AUTO) 1.5 (1.0-3.2); MEAN CORPUSCULAR HGB CONC 34.9 g/dL (31-35); MEAN CORPUSCULAR VOLUME 94.6 fL (81-99); MONOCYTES # (AUTO) 0.9 (0.2-0.8); MONOCYTES % 7.9 % (4.4-11.3); NEUTROPHILS # (AUTO) 8.4 (2.1-6.9); NEUTROPHILS % 77.5 % (38.7-80.0); PLATELET COUNT 246 x10e3/uL (140-360); RED BLOOD COUNT 4.48 x10e6/uL (4.3-5.7); RED CELL DISTRIBUTION WIDTH 12.1 % (11.7-14.4)
[2019-06-04 06:19] LABS: ALANINE AMINOTRANSFERASE 13 IU/L (0-55); ALBUMIN 3.5 g/dL (3.5-5.0); ALKALINE PHOSPHATASE 70 IU/L (40-150); ANION GAP 15.1 mmol/L (8-16); BLOOD UREA NITROGEN 10 mg/dL (7-26); BUN/CREATININE RATIO 12 (6-25); CALCIUM 10.1 mg/dL (8.4-10.2); CARBON DIOXIDE 25 mmol/L (22-29); CHLORIDE 103 mmol/L (98-107); CREATININE, SERUM 0.83 mg/dL (0.72-1.25); EST GLOMERULAR FILTRATION RATE > 60 ML/MIN (60-); GLUCOSE 117 mg/dL (74-118); LIPASE 23 U/L (8-78); POTASSIUM 4.1 mmol/L (3.5-5.1); SODIUM 139 mmol/L (136-145)
[2019-06-04] MEDS ORDERED: PANTOPRAZOLE SO40 MG PO (06:23)
--- NOTE | 2019-06-04 07:44 | NUR ---
Gave report to oncoming nurse. call light within reach. patient in bed.
[2019-06-04 07:51] VITALS: BP 149/84
[2019-06-04] MEDS: FAMOTIDINE 20 MG TAB PO SCH (07:51)
[2019-06-04 09:00] VITALS: BP 149/84
[2019-06-04] MEDS ORDERED: NON-FORMULARY MEDICATION (Alprazolam 2 MG) PO SCH (09:00)
[2019-06-04] MEDS ORDERED: NON-FORMULARY MEDICATION (Citalopram Hydrobromide (Celexa) 10 MG) PO SCH (09:00)
[2019-06-04] MEDS ORDERED: NON-FORMULARY MEDICATION (Lisinopril 5 MG) PO SCH (09:00)
[2019-06-04] MEDS ORDERED: BUPROPION HCL SR 150 MG TAB PO SCH (09:00)
[2019-06-04] MEDS: CITALOPRAM HYDROBROMIDE 20 MG TAB PO SCH (10:09)
[2019-06-04] MEDS: AMOXICILLIN/CLAVULANATE K 875 MG TAB PO SCH (10:09)
[2019-06-04] MEDS: AMLODIPINE BESYLATE 10 MG TAB PO SCH (10:10)
[2019-06-04] MEDS: LISINOPRIL 2.5 MG TAB PO SCH (10:11)
[2019-06-04] MEDS: BUPROPION HCL 100 MG TAB PO SCH (10:11)
[2019-06-04] MEDS: ALPRAZOLAM 1 MG TAB PO SCH (10:12)
[2019-06-04] MEDS: MORPHINE SULFATE 2 MG/ML SYR 1ML IV PRN (10:18)
[2019-06-04 12:43] VITALS: BP 148/86
--- NOTE | 2019-06-04 12:50 | NUR ---
H&P cc: abdominal pain/N/V HPI: 53yoM, PCP Dr.Milton Saab, now with abdominal pain/N/V/D. PMH: substance abuse including cocaine, HTN, HLD, diverticulitis s/p patial sigmoid resection in 1993, HCV, current smoker, mood d/o, methamphetamine use PSHX: partial sigmoid resction in 1993 for diverticulitis, right inguinal hernia repair Allergies; see emr Fh/SH; ; no etoh; 1/3ppd cigs; cocaine and MJ use Meds; see MAR ROS: no f/c/s/N/V/[place]/vision changes/back pain/skin rash v/s revd PE tired appearing anicteric ns1s2 mod bs soft ND; mild abdominal pain. no e/t skin dry n. affect labs/meds; revd A/P: 53yoM Acute gastroenteritis- likely bacterial DIverticulosis Dedydration Hx substance abuse HTN- home meds HLD- home meds mood d/o Curent smoker SHARRON strange; pepcid Dispo: check utox. Ernesto Ashraf MD, PhD.
[2019-06-04] MEDS ORDERED: CEFTRIAXONE SOD 1 GM/NS 50 ML 50 ML IV SCH (13:00)
[2019-06-04 13:18] LABS: AMPHETAMINES SCREEN,URINE NEGATIVE (NEGATIVE); BENZODIAZEPINES SCREEN,URINE NEGATIVE (NEGATIVE); PHENCYCLIDINE SCREEN,URINE NEGATIVE (NEGATIVE)
[2019-06-04 16:20] VITALS: BP 136/86
[2019-06-04] MEDS: LACTOBACILLUS ACIDOPHILUS CAPSULE PO SCH (18:12)
--- NOTE | 2019-06-04 20:00 | NUR ---
ROUNDS DONE, PATIENT RESTING IN BED, IV INFUSING, NO DISTRESS NOTED. WILL CONTINUE TO MONITOR.
[2019-06-04] MEDS: ARIPIPRAZOLE 5 MG TABLET PO SCH (20:43)
[2019-06-04] MEDS: DIVALPROEX SODIUM 250 MG TAB...DR PO SCH (20:43)
[2019-06-04] MEDS: PANTOPRAZOLE 40 MG 10ML VIAL IV SCH (20:43)
[2019-06-04] MEDS: PRAVASTATIN 20 MG TAB PO SCH (20:43)
[2019-06-04] MEDS ORDERED: CEPHALEXIN 500 MG CAP PO SCH (21:00)
[2019-06-05] VITALS: BP 128/94
--- NOTE | 2019-06-05 | NUR ---
CONTINUE RESTING, NO COMPLAINTS OF PAIN. CALL LIGHT REMAIN IN REACH.
[2019-06-05 03:34] LABS: BASOPHILS % 0.2 % (0.0-1.0); EOSINOPHILS % 0.4 % (0.0-6.0); HEMATOCRIT 41.7 % (38.2-49.6); HEMOGLOBIN 14.7 g/dL (14.0-18.0); LYMPHOCYTES # (AUTO) 1.4 (1.0-3.2); LYMPHOCYTES % 17.4 % (18.0-39.1); MEAN CORPUSCULAR HGB CONC 35.3 g/dL (31-35); MEAN CORPUSCULAR VOLUME 93.5 fL (81-99); MONOCYTES # (AUTO) 0.8 (0.2-0.8); MONOCYTES % 9.6 % (4.4-11.3); NEUTROPHILS # (AUTO) 5.8 (2.1-6.9); PLATELET COUNT 202 x10e3/uL (140-360); RED BLOOD COUNT 4.46 x10e6/uL (4.3-5.7); RED CELL DISTRIBUTION WIDTH 11.9 % (11.7-14.4)
[2019-06-05 03:51] LABS: ANION GAP 13.6 mmol/L (8-16); BLOOD UREA NITROGEN 11 mg/dL (7-26); BUN/CREATININE RATIO 15 (6-25); CARBON DIOXIDE 24 mmol/L (22-29); CHLORIDE 105 mmol/L (98-107); CREATININE, SERUM 0.74 mg/dL (0.72-1.25); EST GLOMERULAR FILTRATION RATE > 60 ML/MIN (60-); GLUCOSE 122 mg/dL (74-118); POTASSIUM 3.6 mmol/L (3.5-5.1); SODIUM 139 mmol/L (136-145)
[2019-06-05 03:57] VITALS: BP 128/94
[2019-06-05] MEDS: SODIUM CHLORIDE 0.9% 1000ML 1,000 ML IV SCH (03:58)
[2019-06-05 04:00] VITALS: BP 164/92
[2019-06-05] MEDS: ONDANSETRON HCL INJ 2MG/ML 2ML 2 MG/ML VIAL IV PRN (04:04)
[2019-06-05] MEDS: MORPHINE SULFATE 2 MG/ML SYR 1ML IV PRN (04:04)
--- NOTE | 2019-06-05 04:07 | NUR ---
COMPLAIN OF PAIN AND MEDICATED ORDERED. IV RESTARTED TO HIS LEFT HAND, WILL CONTINUE TO MONITOR. CALL LIGHT REMAIN IN REACH.
--- NOTE | 2019-06-05 07:02 | NUR ---
PATIENT RESTING IN BED, NO COMPLAINTS OF PAIN AT THIS TIME. ROUNDS GIVEN TO ONCOMING NURSE.
[2019-06-05] MEDS ORDERED: KEFLEX500 MG PO (07:43)
--- NOTE | 2019-06-05 07:45 | NUR ---
Discharge summary Principal Dx: Acute gastroenteritis- likely bacterial Dehydration Secondary Dx: DIverticulosis Hx substance abuse HTN- home meds HLD- home meds mood d/o Curent smoker SHARRON nestore; pepcid Dispo: check utox. d/c home f/u pcp 1 week and GI 2 weeks. stable d/c>35mins Ernesto Ashraf MD, PhD.
[2019-06-05 08:08] VITALS: BP 157/99
[2019-06-05 08:14] VITALS: BP 157/99
[2019-06-05] MEDS: CITALOPRAM HYDROBROMIDE 20 MG TAB PO SCH (09:08)
[2019-06-05] MEDS: ALPRAZOLAM 1 MG TAB PO SCH (09:08)
[2019-06-05] MEDS: AMLODIPINE BESYLATE 10 MG TAB PO SCH (09:08)
[2019-06-05] MEDS: PANTOPRAZOLE 40 MG 10ML VIAL IV SCH (09:08)
[2019-06-05] MEDS: FAMOTIDINE 20 MG TAB PO SCH (09:08)
[2019-06-05] MEDS: BUPROPION HCL 100 MG TAB PO SCH (09:09)
[2019-06-05] MEDS: LACTOBACILLUS ACIDOPHILUS CAPSULE PO SCH (09:09)
[2019-06-05] MEDS: LISINOPRIL 2.5 MG TAB PO SCH (09:09)
== END 2019-06-05 10:00 | disposition home or self-care (01) ==
LOC: ER 09:54 → ERHOLD 13:37 → IMCU 17:54
PROVIDERS: ADMIT Internal Medicine; ATTEND Internal Medicine
DX: A09 Infectious gastroenteritis and colitis, unspecified (principal); R10.13 Epigastric pain; R11.2 Nausea with vomiting, unspecified; I10 Essential (primary) hypertension; F41.9 Anxiety disorder, unspecified; F32.9 Major depressive disorder, single episode, unspecified; K21.9 Gastro-esophageal reflux disease without esophagitis; E78.5 Hyperlipidemia, unspecified; M54.9 Dorsalgia, unspecified; F31.9 Bipolar disorder, unspecified; K57.30 Diverticulosis of large intestine without perforation or abscess without bleeding; E86.0 Dehydration; Z88.8 Allergy status to other drugs, medicaments and biological substances; Z88.1 Allergy status to other antibiotic agents; Z98.0 Intestinal bypass and anastomosis status; Z83.3 Family history of diabetes mellitus; Z80.9 Family history of malignant neoplasm, unspecified; Z72.0 Tobacco use; Z86.19 Personal history of other infectious and parasitic diseases
CPT/HCPCS: 36415 ×3; 74177; 80048; 80053 ×2; 80307; 81001; 82150; 83605; 83690 ×2; 85025 ×3; 87086; 93005; 99284; C9113 ×3; G0378 ×3; J0500; J0696 ×2; J2270 ×4; J2405 ×2; J7030 ×3; Q9967